=== PATIENT | female | born 1985 | race Caucasian/White ===

== ENCOUNTER 2019-12-31 08:23 | Outpatient (CLI) | payer OTHER ==
--- NOTE | 2019-12-31 11:30 | MRI ---
MRI BRAIN WITH AND WITHOUT CONTRAST: DATE: 12/31/2019 HISTORY: 34-year-old female headache with complex third ventricular mass ICD-10: D 49.6 COMPARISON: Noncontrast MRI of 12/11/2019 from [place], [place] TECHNIQUE: Multiplanar, multisequence MRI of the brain performed pre- and post-IV injection of gadolinium based contrast agent. FINDINGS: There is an approximately 1.8 x 1.4 x 1.7 cm smoothly, well-circumscribed, nonlobulated, unilocular c ystic mass at the anterior aspect of the third ventricle, obstructing the foramen of Monro. The fluid contents are isointense to osman matter on T1 WI, and hyperintense but slightly hypointense rela tive to CSF on T2 WI. Within the cyst, there is a 0.7 x 0.9 x 0.6 cm nonenhancing solid nodule which is isointense relative to white matter on T1 WI and hypointense on T2 WI, where it is almost is ointense relative to white matter. This internal solid mass has slightly different orientation compared to the previous MRI, indicating that it is freely mobile within the cyst. Although there is thin peripheral rim enhancement surrounding the mass, the mass itself does not enhance. There is moderate dilation of the lateral ventricles bilaterally, and there is transependymal migrati on of CSF. The third and fourth ventricles are not dilated. There is no restricted diffusion, mass effect, midline shift, abnormal intra-axial enhancement, or extra-axial fluid collection. The cerebra l sulcal markings are diffusely mildly effaced, suggestive of increased intracranial pressure. Perimesencephalic cistern, prepontine cistern, and foramen magnum, are normal. No vertical transtento rial herniation. No interval change since the prior outside noncontrast brain MRI. The report from the outside facility gave a differential diagnosis of colloid cyst, craniopharyngioma , and glioma. Of these, colloid cyst is most likely. This is probably not a glioma. 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 2) among of the differential diagnosis given on outside facilities report, colloid cyst is favored ( with focal internal mobile calcification versus internal small hematoma), and third ventricular craniopharyngioma is less likely.
--- NOTE | 2019-12-31 11:38 | CT ---
CT ANGIOGRAM OF BRAIN WITH AND WITHOUT CONTRAST: DATE: 12/31/2019 HISTORY: 34-year-old female with headache and ICD-10: "D49.6 complex third ventricular mass" TECHNIQUE: Noncontrast brain CT performed. Iodinated IV contrast injected. Bolus chasing technique scan performed through the head. Coronal and sagittal 3-D MIP reconstructions. FINDINGS: The midline mass at the anterior aspect of the third ventricle, obstructing the foramen of Monro, cau sing moderate dilation of the lateral ventricles bilaterally, is not connected to any intracranial arterial branch. This cystic mass is filled with fluid that is relatively isodense compared to brain parenchyma, except for a small portion of its internal contents located posteriorly and inferiorly which is moderately hyperdense, but not of calcific density. This is consistent with a small hematoma . There is no rim calcification. The anterior and posterior circulation of [place] of [place] is normal. Inferior sagittal sinus is not visualized, probably aplastic or hypoplastic. The rest of the dural ve nous sinuses are patent and clear. 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
[2019-12-31] MEDS ORDERED: Iopamidol 370 76% 100 ML VIAL ONE (15:37)
[2019-12-31] MEDS ORDERED: Magnevist 469MG/ML 20 ML VIAL ONE (15:46)
== END 2019-12-31 08:24 | disposition home or self-care (01) ==
LOC: TBSIIMAG 08:23 → CT 08:24
PROVIDERS: ATTEND Neurological Surgery
DX: G93.89 Other specified disorders of brain (principal)
CPT/HCPCS: 70496; 70553; A9579; Q9967

== ENCOUNTER 2020-03-28 06:56 | Outpatient (CLI) | payer OTHER ==
[2020-03-28 14:39] LABS: Hemoglobin 14.6 g/dL (12.0-16.0); Mean Corpuscular HGB CONC 32.4 g/dL (32.0-36.0); Mean Corpuscular Hemoglobin 31.8 pg (27.0-31.0); Mean Corpuscular Volume 98.4 fL (78.0-98.0); Mean Platelet Volume 8.1 fL (7.4-10.4); Platelet Count 211 thou/uL (130-400); RBC Distribution Width 11.8 % (11.5-14.5); Red Blood Cell (RBC) Count 4.59 mill/uL (4.20-5.40); White Blood Cell (WBC) Count 5.6 thou/uL (4.8-10.8)
[2020-03-28 16:09] LABS: BHCG - Serum Negative (NEGATIVE); Pregs Control Background? CLEAR/WHITE (CLR/WHITE); Pregs Control Bar Appear? YES (CONTROL BAR)
[2020-03-29 12:19] LABS: SARS-CoV-2 MS2 Positive; SARS-CoV-2 N Gene Negative; SARS-CoV-2 S Gene Negative; SARS-CoV-2 by NAA Not Detected (NotDetected); SARS-CoV-2 orf1ab Negative
== END 2020-03-28 06:57 | disposition home or self-care (01) ==
LOC: LABBT 06:56
PROVIDERS: ATTEND Neurological Surgery
DX: Z01.812 Encounter for preprocedural laboratory examination (principal); Z20.828 Contact with and (suspected) exposure to other viral communicable diseases; G93.9 Disorder of brain, unspecified
CPT/HCPCS: 84703; 85027; 87635; U0003

== ENCOUNTER 2020-03-28 11:30 | Inpatient (IN) | payer OTHER ==
[2020-03-28 13:35] VITALS: BMI 22.9
--- NOTE | 2020-03-31 08:42 | HP ---
REASON FOR H AND P: Surgery on 04/01/2020. . HISTORY OF PRESENT ILLNESS: Ms. Menon is a 35-year-old female with a chief complaint of headaches. Brain MRI indicated a cystic lesion in the 3rd ventricle directly between the foramen of Monro. Due to the size and location of the cystic lesion, it is affecting some of the CSF flow. Along with her headache, she has been having some leg weakness while standing and some visual disturbances. REVIEW OF SYSTEMS: CONSTITUTIONAL: Denies fever or chills. ENT: Reports vision disturbances. Denies change in hearing. CARDIAC: Denies chest pain, shortness of breath, or diaphoresis. PULMONARY: Denies shortness of breath, cough, or hemoptysis. GI: Denies abdominal pain, nausea, vomiting, diarrhea, change in stool formation and consistency. : Denies trouble with urination, frequency of urination, or bloody urine. SKIN: Denies skin rash, bruising, bleeding, or skin masses. MUSCULOSKELETAL: As per history of present illness. NEUROLOGICAL: As per history of present illness. PSYCHOLOGICAL: Denies anxiety, depression, or behavior changes. MEDICAL HISTORY: Abnormal Pap and migraine. SURGICAL HISTORY: , breast augmentation, PRK-eye surgery, PRP-joint procedure. FAMILY HISTORY: Father alive, diagnosed with diabetes, hypertension, and stroke. Mother alive, diagnosed with hypertension. Children alive. SOCIAL HISTORY: Smokes one cigarette every 2 weeks. Denies alcohol or illicit drug use. Retired from the [employer]. MEDICATIONS: 1. Sumatriptan 50 mg. 2. Naproxen 250 mg. 3. Amitriptyline 25 mg. ALLERGIES: NO KNOWN DRUG ALLERGIES. PHYSICAL EXAMINATION: VITAL SIGNS: Weight 135, height 65, and BMI 22.46. HEENT: Pupils are equal. Extraocular movements are intact. NECK: Soft and supple. No masses are noted. Range of motion is intact and nonpainful. NEUROLOGICAL: Awake, alert, and oriented x3. Memory, attention, and fund of knowledge normal. Cranial nerves are grossly intact. Gait and station are normal. Toe, heel, and tandem walking are normal. Motor exam, no drift. Sensory exam, no neglect. IMAGING: MRI of the brain, cystic lesion at the foramen of Monro. DIFFERENTIAL DIAGNOSIS: Colloid cyst, craniopharyngioma or cysticercosis. PLAN: 1. Attempt to remove the cystic lesion through endoscopic. If unsafe, we will come back the next day to the operating room for an open procedure. 2. Preop labs CBC, PT, PTT, and COVID-19. 3. BrainLAB protocol. 4. Clearance. INFORMED CONSENT: We discussed the indications, risks, benefits, alternatives, and expected results from surgery. The risks discussed included, but were not limited to, infection, bleeding, CSF leak, brain damage, significant loss of neurological function, seizures, stroke, dependency for normal care, cardiopulmonary complications of anesthesia, or . Long-term complications discussed included, but were not limited to, recurrent and future surgeries. She understands the risks and is willing to proceed. Job ID: [id number]
[2020-04-01] MEDS ORDERED: Fentanyl 250 MCG/5 ML VIAL ONE (06:39)
[2020-04-01] MEDS ORDERED: levETIRAcetam 500 MG/100 ML PREMIX BAG ONE (06:39)
[2020-04-01] MEDS ORDERED: LEVETIRACETAM IN NACL ONE (06:39)
[2020-04-01] MEDS ORDERED: Propofol 1,000 MG/100 ML VIAL IV ONE (06:40)
[2020-04-01] MEDS ORDERED: Midazolam HCl 2 mg/2 ml Vial ONE (06:42)
[2020-04-01] MEDS ORDERED: Thrombin 5000 UNITS/5 ML VIAL ONE (06:44)
[2020-04-01] MEDS ORDERED: Bacitracin Zinc Ointment 30 gm TUBE ONE (06:44)
[2020-04-01] MEDS ORDERED: Lidocaine 0.5%/Epinephrine 1:200,000 50 ml Vial ONE (06:44)
[2020-04-01] MEDS ORDERED: Ondansetron PF 4 MG/2 ML Vial ONE ×2 (09:13→12:24)
[2020-04-01] MEDS ORDERED: Vecuronium 10 MG VIAL ONE (09:13)
[2020-04-01] MEDS ORDERED: Rocuronium Bromide 10 MG/ML (10ML VIAL) ONE (09:13)
[2020-04-01] MEDS ORDERED: Lidocaine 1% PF 5 ML VIAL ONE ×2 (09:13)
[2020-04-01] MEDS ORDERED: Dexamethasone 20 MG/5 ML VIAL ONE (09:13)
[2020-04-01] MEDS ORDERED: PROPOFOL 200 MG/20 ML VIAL ONE (09:13)
[2020-04-01] MEDS ORDERED: SUGAMMADEX SODIUM 200 MG/2 ML VIAL ONE (10:34)
[2020-04-01] MEDS ORDERED: Fentanyl 100 MCG/2 ML VIAL ONE ×2 (10:34→13:27)
[2020-04-01] MEDS ORDERED: HYDROmorphone 2 MG/ML VIAL SLOW IVP PRN (11:13)
[2020-04-01] MEDS ORDERED: Ondansetron HCl/PF 4 MG/2 ML Vial IVP PRN (11:13)
[2020-04-01] MEDS ORDERED: PACU-Morphine 4MG/ML VIAL SLOW IVP PRN (11:13)
[2020-04-01] MEDS ORDERED: Morphine Sulfate 2 MG/ML SYRINGE SLOW IVP PRN (11:13)
[2020-04-01] MEDS ORDERED: Promethazine HCl 25 MG/ML VIAL IM PRN ×2 (11:13→11:21)
[2020-04-01] MEDS ORDERED: Promethazine HCl 25 MG/ML VIAL SLOW IVP PRN (11:13)
[2020-04-01] MEDS ORDERED: Mag-Al 1200 mg/1200 mg/30 ML UDCUP PO PRN (11:21)
[2020-04-01] MEDS ORDERED: Labetalol HCl 100 MG/20 ML VIAL SLOW IVP PRN (11:21)
[2020-04-01] MEDS ORDERED: hydrALAZINE 20 MG/ML VIAL SLOW IVP PRN (11:21)
[2020-04-01] MEDS ORDERED: diphenhydrAMINE 50 MG CAP PO PRN (11:21)
[2020-04-01] MEDS ORDERED: Acetaminophen 325 MG TAB PO PRN (11:21)
[2020-04-01] MEDS ORDERED: Cepastat Lozenges 1 LOZ PO PRN (11:21)
[2020-04-01] MEDS ORDERED: Docusate 100 MG CAP PO PRN (11:21)
[2020-04-01] MEDS ORDERED: Promethazine 25 MG TAB PO PRN (11:21)
[2020-04-01] MEDS ORDERED: Acetaminophen/Codeine 30-300mg Tablet PO PRN (11:27)
[2020-04-01] MEDS ORDERED: Promethazine HCl 25 MG/ML VIAL ONE (13:29)
[2020-04-01] MEDS: Dexamethasone 4 mg/ml Vial SLOW IVP SCH ×3 (16:03→23:00)
[2020-04-01] MEDS: CEFAZOLIN 2 GM in Premix Bag 1 BAG IVPB SCH ×2 (16:04→21:07)
[2020-04-01] MEDS: Sodium Chloride 0.9% 1,000 ML IV SCH ×2 (16:04→23:23)
--- NOTE | 2020-04-01 16:07 | OP ---
DATE OF PROCEDURE: 04/01/2020 ADVERTISING INTER[employer]: Saul Monsivais PA-C PREOPERATIVE INDICATION: Make diagnosis, treat hydrocephalus, prevent neurological deterioration. 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 PROCEDURE PERFORMED: BrainLAB assisted stereotactic-guided endoscopic resection of third ventricular cyst. PREOPERATIVE MEDICATION: Ancef 2 g IV. DRAIN NUMBER: 1. DRAIN TYPE: External ventricular. DESCRIPTION OF PROCEDURE: The patient was brought to the operating room. General endotracheal anesthesia was induced. The patient was positioned supine on the operating table and her head was mobilized with [place] pin and kiln head house operator in the [place] attachment for the operating table. Using the TaKaDu protocol MRI scan done before the operation, the TaKaDu system, and surface registration techniques, we generated navigational space around the patient's head. The registration was verified with surface landmarks and found to be in excellent concordance. Hair was removed from the right side of the scalp with electric clippers. We planned a curvilinear incision just anterior to the coronal suture and then the exit site for the drain posterior to that. Under the planned incisions, we infused local anesthetic. The scalp was sterilely prepped and draped. We opened our anterior incision with a 10 blade knife and controlled bleeding with bipolar and monopolar cautery. We placed a mastoid retractor after mobilizing the periosteum. Using the TaKaDu system, we brought the navigation wand into the field. This confirmed that we had chosen an entry point given us a trajectory into the frontal horn of the lateral ventricle on the right. We drilled out our heidy hole and waxed the edges with bone wax. We incised the dura in a cruciate fashion and coagulated back the leaflets of the dura. We coagulated the mary and incised the mary with 11 blade knife. Using the TaKaDu navigation wand inside the plastic ventricular access sheath and the stylet, we advanced into the frontal horn of the lateral ventricle on the right side. The stylet was removed and CSF egress was noted. The neuroendoscope was brought into the field. We advanced the endoscope through the sheath into the ventricular system and identified landmarks. First, we noticed that the septum pellucidum was billowing towards us and obstructing our view. In 2 separate areas, we gently coagulated the septum pellucidum and advanced our bipolar cautery through the septum pellucidum both anterior just above the cyst and posterior until there was a clear connection between the ventricular system and the right lateral ventricle and the left lateral ventricle. We then turned our attention in the foramen of Monro. In a very slow meticulous fashion we identified the cystic lesion at the foramen of Monro. Interestingly, choroidal veins left the anterior septal vein markedly posterior to the foramen of Monro as did the thalamostriate veins. This give us some leeway in mobilizing and enlarging the foramen of Monro by gently coagulating with bipolar cautery and dissecting carefully posteriorly in the tinea fornicis. We could easily visualize the cystic lesion in the 3rd ventricle through the foramen of Monro. We coagulated some attachments to the choroid plexus on the right side and cut a few sharply and this gave us even wider access to the lateral aspect of the cyst. We coagulated the cyst wall. Immediately some colloidal material emanated into our vision. This was aspirated, grabbed and removed and aspirated more until it stopped emanating. We could visualize into the cyst itself. At the posterior and deep portion there was a solid component. Anteriorly, the lynch of the cyst were now redundant and flapping. With a micro grabber through the foramen of Monro we were able to grab the coagulated side of the cyst. We gently rolled the endoscopic instrument circumferentially taking up more and more cyst wall wrapping around the instrument. The cyst wall then from the roof of the 3rd ventricle. Although there was some bleeding, it was minimal. I removed the cyst wall and with it came the solid portion of the dense material from the bottom of the cyst. These were both saved and labeled contents and cyst wall and sent for histopathology. We reintroduced the scope. Visualization was good. The small amount of bleeding tapered off significantly. We irrigated with bacitracin irrigation. We brought the external ventricular drain into the field and advanced it to a depth of 6 cm from the skull surface. We removed the sheath around the drain and tunneled the distal end of the drain posteriorly through a separate stab incision. We connected it back to her drainage CSF system. We placed Gelfoam in the heidy hole and we closed in anatomical layers. We allowed the CSF to drain at a height of 0 in the recovery room. Job ID: [id number] [facility]
[2020-04-01 22:29] LABS: Bacteria/HPF None Seen HPF (None Seen); Bilirubin Negative (Negative); Blood, Urine 2+ (Negative); Clarity Extra Turbid (Clear); Glucose, Urine (Dipstick) Normal (Negative); Ketone, Urine Negative (Negative); Leukocyte Negative Leu/uL (Negative); Nitrite Negative (Negative); Protein, Urine (Dipstick) 30 mg/dL (Neg-Trace); RBC/HPF Greater than 50 HPF (0-3); Squamous Epithelial 0-3 HPF (0-3); Urobilinogen Normal mg/dL (Less than 2); WBC/HPF 0-3 HPF (0-3)
[2020-04-01 22:31] LABS: Urine Culture Reflex No No
[2020-04-01] MEDS: Morphine 2 MG/ML VIAL SLOW IVP PRN (22:48)
[2020-04-02 03:30] LABS: #Lymphocytes 0.8 thou/uL (1.20-3.40); #Monocytes 0.3 thou/uL (0.11-0.59); #Neutrophils 8.8 thou/uL (1.40-6.50); %Basophils 0.1 % (0.0-1.0); %Eosinophils 0.1 % (0.0-10.0); %Lymphocytes 8.3 % (21.0-51.0); %Monocytes 2.8 % (0.0-10.0); %Neutrophils 88.8 % (42.0-75.0); Hemoglobin 13.4 g/dL (12.0-16.0); Mean Corpuscular HGB CONC 33.4 g/dL (32.0-36.0); Mean Corpuscular Volume 95.8 fL (78.0-98.0); Platelet Count 193 thou/uL (130-400); RBC Distribution Width 11.8 % (11.5-14.5); Red Blood Cell (RBC) Count 4.18 mill/uL (4.20-5.40); White Blood Cell (WBC) Count 9.9 thou/uL (4.8-10.8)
[2020-04-02 03:45] LABS: Anion Gap 12 mmol/L (10-20); BUN (Urea Nitrogen) 10 mg/dL (7.0-18.7); Calc. Creatinine Clearance 93 mL/min (70-130); Calcium 7.9 mg/dL (7.8-10.44); Carbon Dioxide 20 mmol/L (22-29); Chloride 108 mmol/L (98-107); Estimated GFR-MDRD 78; Glucose 121 mg/dL (70-105); Potassium 4.2 mmol/L (3.5-5.1); Sodium 136 mmol/L (136-145)
[2020-04-02] MEDS: CEFAZOLIN 2 GM in Premix Bag 1 BAG IVPB SCH ×3 (05:02→22:11)
[2020-04-02] MEDS: Dexamethasone 4 mg/ml Vial SLOW IVP SCH ×3 (05:02→22:11)
--- NOTE | 2020-04-02 08:03 | PRG ---
DATE OF SERVICE: 04/02/2020 I saw Ms. Menon in the ICU this morning. She is one day out from colloid cyst resection. Ms. Menon was much more oriented and lucid than she was yesterday following her operation; however, her memory is not quite back to normal. Overnight, the highest temperature as we recorded is 98.4 degrees Fahrenheit. Blood pressures have been between the 90s and 120s. ICP, interestingly, has been in the teens to 20s and at five different episodes, she has needed her drain opened, after which 10 mL of CSF have been removed and her ICPs have normalized following those maneuvers. On examination, Ms. Menon is wide awake. Visual mena are full. She does not have any pronator drift. Both sides of her body move well. When I test her orientation, she knows the name of this hospital, she knows where she lives and the year. She does not know the president or the month. She cannot recall the name of the virus causing the pandemic. Short-term memory, she needs hints to remember for things rather than simply remembering them. White blood cell count is 9.9 this morning. Her sodium is 136. Urine culture is pending. Ms. Menon has tolerated high ICPs chronically and therefore, she is asymptomatic when her ICP goes up. However, I hope the cyst contents have not clogged the aqueduct of [place]. I am going to raise the threshold to 25 mmHg, after which, the drain should be opened and we will see if we can get through 24-hour period without having to drain any CSF. If we can, I will avoid shunting. If we need to, we will place a shunt sometime during this hospitalization. Job ID: [id number] [facility]
[2020-04-02] MEDS: Morphine 2 MG/ML VIAL SLOW IVP PRN (08:07)
[2020-04-02] MEDS: Pantoprazole 40 MG VIAL IVP SCH (09:11)
--- NOTE | 2020-04-02 11:53 | CON ---
DATE OF CONSULTATION: 04/02/2020 REASON FOR CONSULTATION: ICU placement. HISTORY OF PRESENT ILLNESS: A 35-year-old who underwent a colloid cyst resection from 3rd ventricle area yesterday. She has a little bit of short-term memory loss, but is otherwise pleasant and is doing well. She has a ventriculostomy in place. PAST MEDICAL HISTORY: Migraine headaches. PAST SURGICAL HISTORY: 1. . 2. Breast augmentation. 3. PRK eye surgery. FAMILY MEDICAL HISTORY: Remarkable for; 1. Diabetes. 2. Hypertension. 3. Stroke. SOCIAL HISTORY: Very occasional smoker. Does not consume alcohol or use illicit drugs. MEDICATIONS: Prior to admission; 1. Sumatriptan. 2. Naproxen. 3. Amitriptyline. ALLERGIES: NONE. PHYSICAL EXAMINATION: VITAL SIGNS: Temperature 98.4, pulse 81, blood pressure saturation 100%. GENERAL: She is awake and alert, in no distress. HEENT: Remarkable for circumferential band around her skull. NECK: No adenopathy or JVD. LUNGS: Clear. CARDIAC: S1, S2. Regular. ABDOMEN: Soft. EXTREMITIES: No edema. LABORATORY DATA: White blood cell count 9.9, hematocrit 40, and platelet count 193. Sodium 136, potassium 4.2, chloride 108, CO2 of 20, BUN 10, creatinine 0.8, and glucose 121. ASSESSMENT: Post craniotomy for colloid cyst resection. PLAN: She is currently on Protonix for GI prophylaxis and SCDs for DVT prophylaxis. She is also on dexamethasone for swelling. There is really nothing for me to add at this time, but I will be happy to follow along with you. Job ID: [id number]
[2020-04-02] MEDS: Sodium Chloride 0.9% 1,000 ML IV SCH (12:48)
[2020-04-02] MEDS: traMADol HCl 50 MG TAB PO PRN (13:44)
[2020-04-02] MEDS ORDERED: Sodium Chloride 0.9% 1,000 ML IV SCH (15:15)
[2020-04-03] MEDS: CEFAZOLIN 2 GM in Premix Bag 1 BAG IVPB SCH ×3 (06:06→21:41)
--- NOTE | 2020-04-03 06:40 | PRG ---
DATE OF SERVICE: 04/03/2020 Neurosurgery progress note. I saw Ms. Menon in her ICU room this morning. Her EVD has been clamped for the last 24 hours and no CSF needs to be withdrawn. Among the electronically recorded vital signs, I see a temperature maximum of 98.7 degrees Fahrenheit. Blood pressures have been between the 90s and 110s. Ms. Menon wakes up easily. She has a conversation. Her short-term memory has been affected, but otherwise I do not find any focal neurological deficit. Her visual mena are full. Her arms and legs are moving well. We are going to remove the external ventricular drain this morning. With that removed, we can transfer from ICU care to floor care. She will need assistance with mobilization, but encourage her for active mobilization. When she gets home, she is going to need some supervision given her short-term memory difficulty, which I hope is transient. Job ID: [id number] [facility]
[2020-04-03 07:32] LABS: Anion Gap 9 mmol/L (10-20); BUN (Urea Nitrogen) 13 mg/dL (7.0-18.7); Calc. Creatinine Clearance 102 mL/min (70-130); Calcium 7.8 mg/dL (7.8-10.44); Carbon Dioxide 24 mmol/L (22-29); Chloride 106 mmol/L (98-107); Estimated GFR-MDRD 87; Glucose 128 mg/dL (70-105); Potassium 4.2 mmol/L (3.5-5.1); Sodium 135 mmol/L (136-145)
[2020-04-03] MEDS: Dexamethasone 4 mg/ml Vial SLOW IVP SCH ×2 (09:34→21:41)
[2020-04-03] MEDS: Pantoprazole 40 MG VIAL IVP SCH (09:35)
[2020-04-03] MEDS: traMADol HCl 50 MG TAB PO PRN (12:49)
[2020-04-03] MEDS: Morphine 2 MG/ML VIAL SLOW IVP PRN (13:04)
[2020-04-04 04:42] LABS: Anion Gap 12 mmol/L (10-20); BUN (Urea Nitrogen) 11 mg/dL (7.0-18.7); Calc. Creatinine Clearance 112 mL/min (70-130); Calcium 8.1 mg/dL (7.8-10.44); Carbon Dioxide 24 mmol/L (22-29); Chloride 109 mmol/L (98-107); Estimated GFR-MDRD Greater than 90; Glucose 114 mg/dL (70-105); Potassium 3.9 mmol/L (3.5-5.1); Sodium 141 mmol/L (136-145)
--- NOTE | 2020-04-04 07:16 | PRG ---
DATE OF SERVICE: 04/04/2020 Sinan is 3 days out from endoscopic removal of a colloid cyst. She has been out of the ICU on floor care overnight. She remembers what she ate for dinner yesterday, which is an improvement in her short-term memory. She remembers spilling some of her drink and the nurse helping her to clean it up. Among the electronically recorded vital signs, there are no fevers noted. Blood pressures have been 100s to 120s. I do not find any new deficits on exam, although her short-term memory has been affected by surgery, it is improving. I plan to discharge Ms. Menon today. We will follow up by checking her incision in 2 weeks and in the 2 to 3 months timeframe, we will get an MRI scan of the brain as a baseline and then, yearly MRI scans thereafter to ensure no regrowth. Job ID: [id number]
[2020-04-04] MEDS: Pantoprazole 40 MG VIAL IVP SCH (08:53)
[2020-04-04 11:42] VITALS: TEMP 98.7
[2020-04-04 16:13] VITALS: BP 126/63
[2020-04-04] MEDS ORDERED: Dexamethasone 4 mg/ml Vial SLOW IVP SCH (21:00)
== END 2020-04-04 14:15 | disposition home or self-care (01) | DRG 26 ==
LOC: SURG A 04-01 05:36 → EDSTATUS 04-01 11:30 → CCU 04-01 14:39 → SURG A 04-03 17:28 → 2NO 04-03 22:51
PROVIDERS: ADMIT Neurological Surgery; ATTEND Neurological Surgery
PROC: 00B60ZZ Excision of Cerebral Ventricle, Open Approach (ICD-10-PCS; principal; 2020-04-01)
DX: G93.0 Cerebral cysts (principal); G91.1 Obstructive hydrocephalus; F17.210 Nicotine dependence, cigarettes, uncomplicated; G43.909 Migraine, unspecified, not intractable, without status migrainosus; F41.9 Anxiety disorder, unspecified; F32.9 Major depressive disorder, single episode, unspecified; Z79.899 Other long term (current) drug therapy
CPT/HCPCS: 36415; 80048; 81001; 85025; 87086; 88307; 88313; 88342; C9113; J0690; J1100; J1953; J2001; J2250; J2270; J2405; J2550; J2704; J3010; J3490; Q0169